=== PATIENT | female | born 1975 | race Caucasian/White ===

== ENCOUNTER 2017-01-02 18:47 | Emergency (ER) | payer MEDICAID, OTHER ==
[~2017-01-02] VITALS: Ht 167.6 cm; Wt 116.0 kg
[~2017-01-02 18:47] MED LIST: ACYC200C66 PO; ATOR40TA16 PO; CELE200C PO; CLON1TAB PO; CLOT1CRE8 TOPICAL; CULT10CA4 PO; CYCL1TAB29 PO; FLUC100T2 PO; LANTUS2P SQ; MACR100C2 PO; MONT10TA2 PO; NOVOINJ3 SQ; NYST1000 SWISH-SWAL; PANT40TA3 PO; SYMB80AE INH; TRAZ50TA12 PO; ZYRT10CA PO
[2017-01-02 18:55] VITALS: BP 175/106; PULSE 111; RESP 16; TEMP 98.3; O2SAT 99
[2017-01-02 19:42] VITALS: BP 131/80; PULSE 104; RESP 18; O2SAT 97
[2017-01-02] MEDS ORDERED: KETOROLAC TROMETHAMINE 30 MG/ML (IVP) VIAL IV PUSH ONE (19:45)
--- NOTE | 2017-01-02 19:53 | PD ---
HPI Chief Complaint: Headache Time Seen by Provider: 19:38 Travel History International Travel<30 days: No Contact w/Intl Traveler<30days: No Traveled to known affect area: No History of Present Illness HPI 41 year-old female presents to the emergency department for complaint of one day of right-sided headache right facial pain and right-sided nosebleed. Patient notes that she was told physical therapy her blood pressure was elevated and she denies history of hypertension. Patient is also noted since onset of symptoms or blood sugar has been elevated. Patient is a type II diabetic. Patient states her blood sugars have been well-controlled recently her hemoglobin A1c decreased from 8-7 and she's lost 16 pounds. Patient denies any fever or chills. Patient thinks that her pain has caused her blood sugar to elevate. Patient rates her pain 7/10 in intensity. Patient took acetaminophen/Tylenol without relief. Patient states previous history of leading peptic ulcer 10 years ago and was told not to take oral ibuprofen. Patient states in the past and she's had a bad headache she has come to the emergency room and has had an injection of Toradol with good symptom relief. Patient denies any dental pain. Has not noted any gingival swelling. Denies any sore throat. Patient was recently seen by her primary for an earache and was told that she had some fluid behind her ear. Patient is also referred tenderness and throat specialist but has not yet seen a specialist regarding intermittent episodes of tongue pain and swelling. Patient denies any tongue pain or swelling at this time. Patient denies any ear pain at this time. Patient's had no neck pain. Patient denies any injury or fall. Patient's had no cough congestion shortness breath wheezing and no hoarseness or stridor. Patient denies any other symptoms such as urinary frequency urgency dysuria hematuria or flank pain. No nausea no vomiting. No abdominal pain. Patient denies chronic headaches but states has been seen in the emergency department before and received Toradol. Patient has family history of migraines. Headache is not described as sudden onset thunderclap or worst ever. PFSH Past Medical History Narrative Medical Arthritis asthma dyslipidemia diabetes GERD prior PUD carpal tunnel syndrome status post release nasal polypectomy D&C cholecystectomy; no tobacco use; nursing notes reviewed Hx Anticoagulant Therapy: No Arthritis: Yes Asthma: Yes Anxiety: Yes Cancer: No Cardiovascular Problems: No High Cholesterol: Yes Diabetes: Yes Patient Takes Glucophage: No Diminished Hearing: No Endocrine: Yes Gastrointestinal Disorders: Yes (ACID REFLUX - HX STOMACH ULCER) GERD: Yes Genitourinary: No Hepatitis: No Hiatal Hernia: No Hypertension: No Immune Disorder: No Musculoskeletal: Yes (DJD/CHRONIC BACK PAIN) Neurologic: No Psychiatric: No Reproductive: No Respiratory: Yes Immunizations Current: Yes Thyroid Disease: No Ulcer: Yes Tetanus Vaccination: Unknown Influenza Vaccination: No ?: Not Menopausal: Yes Ovarian Cysts: Yes Dilation and Curettage (D&C): Yes Past Surgical History Abdominal Surgery: Yes (LAPROSCOPIC FOR ENDOMETRIOSIS; LAP FOR ADHESION 2013) AICD: No Body Medical Devices: NONE Cardiac Surgery: No Section: Yes (X2) Cholecystectomy: Yes Gynecologic Surgery: Yes (C- SECTION X 2 2002, 2006 ) Joint Replacement: No Neurologic Surgery: Yes (NASAL SURGERY ,HEMATOMA TO SKULL R/T OLD INJURY AND WAS DRAINED) Oral Surgery: Yes (T & A; NASAL POLYPS ) Pacemaker: No Thoracic Surgery: No Tonsillectomy: Yes Other Surgery: Yes (ANAL FISTULA - DUODONAL ULCER SURGERY - NASLA POLYPS REMOVED.) Social History Alcohol Use: No Tobacco Use: No Substance Use: No Allergies-Medications (Allergen,Severity, Reaction): Coded Allergies: Accolate (Verified Allergy, Severe, HIVES, 01/02/17) Adhesives (Verified Allergy, Severe, HIVES, 01/02/17) PT STATES "ADHESIVE RIPS SKIN" - OK TO USE PAPER TAPE Aspirin (Verified Allergy, Severe, HIVES, 01/02/17) Clindamycin (Verified Allergy, Severe, hives, 01/02/17) Darvocet-N 100 (Verified Allergy, Severe, HIVES, 01/02/17) Flagyl (Verified Allergy, Severe, HIVES, 01/02/17) Hctz (Verified Allergy, Severe, Hives, 01/02/17) Metformin (Verified Allergy, Severe, SYNCOPE, 01/02/17) Morphine (Verified Allergy, Severe, Hives, 01/02/17) Penicillin (Verified Allergy, Severe, HIVES, 01/02/17) Reported Meds & Prescriptions Reported Meds & Active Scripts Active Clotrimazole AF Topical (Clotrimazole) 1% Cream 1 Applic TOPICAL BID Nystatin Liq 100,000 unit/ml Susp 5 Ml SWISH-SWAL QID Reported Lantus Inj (Insulin Glargine) 1,000 Unit/10 Ml Vial 60 Units SQ BID Novolog Flexpen Inj (Insulin Aspart) 300 Unit/3 Ml Pen 30 Units SQ TID Acyclovir 200 Mg Cap 200 Mg PO TID Macrobid (Nitrofurantoin Monoh/Nitrofur Macro) 100 Mg Cap 100 Mg PO BID Fluconazole 100 Mg Tab 100 Mg PO DAILY Singulair (Montelukast Sodium) 10 Mg Tab 10 Mg PO HS Atorvastatin (Atorvastatin Calcium) 40 Mg Tab 40 Mg PO HS Symbicort Inh (Budesonide/Formoterol Fumarate) 80-4.5 Mcg/Act Aero 2 Puff INH Q12HR Celebrex (Celecoxib) 200 Mg Cap 200 Mg PO DAILY Clonazepam 1 Mg Tab 1 Mg PO DAILY Culturelle (Lactobacillus Rhamnosus (GG)) 10 B Cell Cap 1 Cap PO DAILY Flexeril (Cyclobenzaprine HCl) 10 Mg Tab 10 Mg PO TID Pantoprazole (Pantoprazole Sodium) 40 Mg Tab 40 Mg PO DAILY Trazodone (Trazodone HCl) 50 Mg Tab 50 Mg PO HS Zyrtec Allergy (Cetirizine HCl) 10 Mg Cap 10 Mg PO DAILY Review of Systems Except as stated in HPI: all other systems reviewed are Neg General / Constitutional: No: Fever, Chills Eyes: No: Visual changes HENT: Positive: Headaches, Nosebleed, No: Vertigo, Lightheadedness, Sore Throat, Neck Stiffness, Neck Pain, Earache Cardiovascular: No: Chest Pain or Discomfort Respiratory: No: Shortness of Breath Gastrointestinal: No: Nausea, Vomiting Genitourinary: No: Dysuria Musculoskeletal: No: Myalgias, Arthralgias Skin: No Rash Neurologic: Positive: Headache, No: Weakness, Dizziness Psychiatric: No: Anxiety Endocrine: No: Heat Intolerance Hematologic/Lymphatic: No: Easy Bruising Physical Exam Narrative GENERAL: Well-developed well-nourished female in no acute distress no respiratory distress; GCS 15; no stridor or hoarseness. SKIN: Warm and dry. HEAD: Atraumatic. Normocephalic. EYES: Pupils equal and round. No scleral icterus. No injection or drainage. ENT: No active nasal bleeding or discharge old dried blood and right anterior naris. Mucous membranes pink and moist. Airway is patent no posterior pharyngeal blood edema erythema or exudative change dentition intact as well as areas of prior extraction no gingival edema or fluctuance; right frontal and right maxillary sinuses tender to percussion increases pain of presentation. No soft tissue edema erythema or induration noted to the facial soft tissue. Tympanic membranes bilaterally no redness no dullness or loss of landmarks no perforation. NECK: Trachea midline. No JVD. No lymphadenopathy. Supple. No nuchal rigidity or meningismus. CARDIOVASCULAR: Regular rate and rhythm. RESPIRATORY: No accessory muscle use. Clear to auscultation. Breath sounds equal bilaterally. GASTROINTESTINAL: Abdomen soft, non-tender, nondistended. Hepatic and splenic margins not palpable. MUSCULOSKELETAL: Extremities without clubbing, cyanosis, or edema. No obvious deformities. NEUROLOGICAL: Awake and alert. No obvious cranial nerve deficits. Motor grossly within normal limits. Five out of 5 muscle strength in the arms and legs. Normal speech. PSYCHIATRIC: Appropriate mood and affect; insight and judgment normal. Data Data Last Documented VS Vital Signs Date Time Temp Pulse Resp B/P Pulse Ox O2 Delivery O2 Flow Rate FiO2 01/02/17 20:34 15 01/02/17 20:01 97 Room Air 01/02/17 19:42 104 131/80 01/02/17 18:55 98.3 Orders Complete Blood Count With Diff (01/02/17 19:38) Magnesium (Mg) (01/02/17 19:38) Urinalysis - C+S If Indicated (01/02/17 19:38) Ecg Monitoring (01/02/17 19:38) Iv Access Insert/Monitor (01/02/17 19:38) Oximetry (01/02/17 19:38) Basic Metabolic Panel (Bmp) (01/02/17 19:38) Ed Urine Pregnancytest Poc (01/02/17 19:38) Ketorolac Inj (Toradol Inj) (01/02/17 19:45) Labs Laboratory Tests Test 01/02/17 19:50 White Blood Count 8.7 TH/MM3 Red Blood Count 4.91 MIL/MM3 Hemoglobin 13.1 GM/DL Hematocrit 39.2 % Mean Corpuscular Volume 79.9 FL Mean Corpuscular Hemoglobin 26.8 PG Mean Corpuscular Hemoglobin 33.5 % Concent Red Cell Distribution Width 14.0 % Platelet Count 286 TH/MM3 Mean Platelet Volume 7.6 FL Neutrophils (%) (Auto) 74.5 % Lymphocytes (%) (Auto) 16.1 % Monocytes (%) (Auto) 6.1 % Eosinophils (%) (Auto) 2.5 % Basophils (%) (Auto) 0.8 % Neutrophils # (Auto) 6.5 TH/MM3 Lymphocytes # (Auto) 1.4 TH/MM3 Monocytes # (Auto) 0.5 TH/MM3 Eosinophils # (Auto) 0.2 TH/MM3 Basophils # (Auto) 0.1 TH/MM3 CBC Comment DIFF FINAL Differential Comment Urine Color STRAW Urine Turbidity CLEAR Urine pH 6.5 Urine Specific [place] 1.005 Urine Protein NEG mg/dL Urine Glucose (UA) NEG mg/dL Urine Ketones NEG mg/dL Urine Occult Blood NEG Urine Nitrite NEG Urine Bilirubin NEG Urine Leukocyte Esterase NEG Urine Squamous Epithelial 0-5 /hpf Cells Microscopic Urinalysis Comment CULT NOT INDICATED Sodium Level 140 MEQ/L Potassium Level 3.5 MEQ/L Chloride Level 102 MEQ/L Carbon Dioxide Level 28.6 MEQ/L Anion Gap 9 MEQ/L Blood Urea Nitrogen 13 MG/DL Creatinine 0.87 MG/DL Estimat Glomerular Filtration 71 ML/MIN Rate Random Glucose 156 MG/DL Calcium Level 9.1 MG/DL Magnesium Level 2.1 MG/DL [facility] Medical Decision Making Medical Screen Exam Complete: Yes Emergency Medical Condition: Yes Medical Record Reviewed: Yes Differential Diagnosis Sinusitis, epistaxis, uncontrolled hypertension, uncontrolled diabetes, cephalgia Narrative Course IV access obtained specimens collected and sent for resulting patient administered Toradol as reports this has been helpful with her headaches in the past. Diagnosis Primary Impression: Acute sinusitis Qualified Code: J01.00 - Acute maxillary sinusitis, recurrence not specified Referrals: Primary Care Physician call for appointment Patient Instructions: General Instructions Med/Other Pt SpecificInfo: Prescription(s) given Scripts Hydrocodone-Acetaminophen (Lortab)5-325 Mg Tab1 Tab PO Q6H PRN (PAIN) #7 TAB Ref 0 Prov:Serene Madrigal MD 01/02/17 Sulfamethoxazole-Trimethoprim (Bactrim DS)800-160 Mg Tab1 Tab PO BID #20 TAB Ref 0 Prov:Serene Madrigal MD 01/02/17 Disposition: 01 DISCHARGE HOME Condition: Stable Serene Madrigal MD January 02, 2017 19:53
[2017-01-02 20:01] VITALS: O2SAT 97
[2017-01-02 20:05] LABS: AUTOMATED NEUTROPHIL # 6.5 TH/MM3 (1.8-7.7); BASOPHIL # 0.1 TH/MM3 (0-0.2); BASOPHIL % 0.8 % (0.0-2.0); EOSINOPHIL # 0.2 TH/MM3 (0-0.4); EOSINOPHIL % 2.5 % (0.0-4.0); HEMATOCRIT 39.2 % (35.0-46.0); HEMO FLAGS DIFF FINAL; LYMPH % 16.1 % (9.0-44.0); LYMPHOCYTE # 1.4 TH/MM3 (1.0-4.8); MEAN CELL VOLUME 79.9 FL (80.0-100.0); MEAN CORPUSCULAR HEMOGLOBIN 26.8 PG (27.0-34.0); MEAN CORPUSCULAR HGB CONC 33.5 % (32.0-36.0); MONO % 6.1 % (0.0-8.0); NEUT % 74.5 % (16.0-70.0); PLATELET COUNT 286 TH/MM3 (150-450); RED BLOOD COUNT 4.91 MIL/MM3 (4.00-5.30); WHITE BLOOD COUNT 8.7 TH/MM3 (4.0-11.0)
[2017-01-02 20:09] LABS: BLOOD, URINE NEG (NEG); GLUCOSE,URINE NEG (NEG); KETONE, URINE NEG (NEG); NITRITE,URINE NEG (NEG); PH, URINE 6.5 (5.0-8.5)
[2017-01-02 20:15] LABS: COMMENT (UR) CULT NOT INDICATED; CULTURE IF INDICATED CULT NOT INDICATED; POTASSIUM 3.5 MEQ/L (3.5-5.1); SQUAMOUS EPITHELIAL CELL URINE 0-5 /hpf (0-5); URINE COLOR STRAW (YELLW/STRAW)
[2017-01-02 20:18] LABS: BICARBONATE 28.6 MEQ/L (21.0-32.0); MAGNESIUM 2.1 MG/DL (1.5-2.5)
[2017-01-02 20:34] VITALS: RESP 15
[2017-01-02] MEDS ORDERED: BACT800T5 PO (21:37)
[2017-01-02] MEDS ORDERED: HYDR-3533 PO (21:37)
[2017-01-02] MEDS ORDERED: LEVOFLOXACIN 500 MG TAB PO ONE (21:45)
[2017-01-02 21:52] VITALS: BP 143/88; TEMP 98.5
== END 2017-01-02 22:07 | disposition home or self-care (01) ==
LOC: PHED 18:47
DX: J01.00 Acute maxillary sinusitis, unspecified (principal); Z79.899 Other long term (current) drug therapy
CPT/HCPCS: 80048; 81001; 83735; 84703; 85025; 96374; 99284; J1885

== ENCOUNTER → 2017-03-10 | Day surgery (SDC) | payer MEDICAID ==
[~2017-03-10] VITALS: Ht 167.6 cm; Wt 118.0 kg
[~2017-03-10] MED LIST changes: +ACETAMINOPHEN/HYDROcodone 325 MG/5 MG TAB ONE; +ACETAMINOPHEN/HYDROcodone 325 MG/7.5 MG TAB ONE; +BLOOD GLUCOSE T1 TES; +BUPIVACAINE/EPINEPHRINE 0.25% PF 30 ML VIAL ONE; +CETI-1 PO; +CHLORHEXIDINE GLUCONATE 2 % 1 PACK (2 CLOTHS) TOPICAL PRN; +HYDR-3533 PO; +HYDROmorphone HCL PF 1 MG/ML VIAL ONE; +INSULIN HUMAN REGULAR 1,000 UNITS/10 ML VIAL SQ PRN; +KETOROLAC TROMETHAMINE 30 MG/ML (IVP) VIAL ONE; +LACTATED RINGER'S 1000 ML IV PRN; +METOPROLOL TARTRATE 25 MG TAB PO PRN; +MIDAZOLAM HCL 2 MG/2 ML VIAL ONE; +ONDANSETRON HCL 4 MG/2 ML VIAL IV PUSH ONE; +POVIDONE IODINE 5% (ANTISEPSIS KIT) 4 APPLICATIONS EACH NARE PRN; +PROMETHAZINE INJ 25 MG/ML VIAL ONE; +PROPOFOL 200 MG/20 ML AMP IV ONE; +SODIUM CHLOR 0.9% 250 ML INJ 250 ML ONE; +SODIUM CHLORID 0.9% 500 ML IV PRN; +TRIAMCINOLONE ACETONIDE 40 MG/ML VIAL ONE; +VANCOMYCIN HCL 1000 MG VIAL ONE; +diphenhydrAMINE HCL 50 MG/ML VIAL ONE
[2017-03-10 07:48] VITALS: BP 122/94; PULSE 103; RESP 18; TEMP 97.8; O2SAT 98
[2017-03-10 12:55] VITALS: BP 135/71; PULSE 88; RESP 16; TEMP 98.2; O2SAT 93
--- NOTE | 2017-03-10 14:24 | MP ---
cc: KHARI HENNESSY M.D. DATE OF SURGERY 03/10/[address] Mayank Hennessy. PREOPERATIVE DIAGNOSIS Tear lateral meniscus right knee joint. POSTOPERATIVE DIAGNOSIS Tear lateral meniscus right knee joint. PROCEDURE Subtotal lateral meniscectomy. PROCEDURE IN DETAIL The patient was placed on the operating table in the supine position. Adequate general anesthesia was administered by the anesthesiologist. The patient's right knee was then prepped and draped in the usual sterile fashion. Esmarch bandage was used to exsanguinate the right lower extremity and the pneumatic tourniquet was inflated to the level of the thigh to a pressure of 300. Time-out was called and the patient's name, location and procedure were fully verified. The right knee joint arthroscopic procedure consisted of two portals, one laterally and one medially. The joint was distended with lactated Ringer's solution and a systematic examination of the knee joint did reveal complex tearing of the anterior horn to the middle one third of the lateral meniscus. The medial meniscus and medial compartment was pristine and intact. The anterior and posterior cruciate ligaments were also found to be intact and the patellofemoral joint was unremarkable. A meniscal resector was placed into the lateral compartment through the medial portal and a subtotal lateral meniscectomy was performed down to healthy appearing tissue. Minimal chondroplasty was required with the same instrument. The joint was then thoroughly irrigated and aspirated of all fluid. All instruments were then removed and the two stab wounds closed with 3-0 nylon. An intra-articular injection of 20 cc of 0.25% percent Marcaine with epinephrine along with 1 cc of Kenalog was instilled in the knee joint. The Xeroform gauze was applied over the wound and a bulky dressing applied over this. The tourniquet was deflated after 14 minutes. Sponge count, needle count and instrument counts were reportedly correct x2. The estimated blood loss was nil. The patient was transferred to recovery room in satisfactory condition. Khari Hennessy MD CHACHO/WENDIE /10:20 AM /2:20 PM
== END | disposition home or self-care (01) ==
LOC: PHSDC 07:06
PROVIDERS: ATTEND Orthopaedic Surgery
DX: S83.281A Other tear of lateral meniscus, current injury, right knee, initial encounter (principal); E11.9 Type 2 diabetes mellitus without complications; K25.9 Gastric ulcer, unspecified as acute or chronic, without hemorrhage or perforation; K21.9 Gastro-esophageal reflux disease without esophagitis; J45.909 Unspecified asthma, uncomplicated
CPT/HCPCS: 01400; 29881; 82948; E0113; J1170; J1200; J1885; J2250; J2405; J2550; J3010; J3301; J3370; J7050; J7120

== ENCOUNTER 2017-05-19 15:09 | Emergency (ER) | payer MEDICAID ==
[~2017-05-19] VITALS: Ht 167.6 cm; Wt 112.2 kg
[~2017-05-19 15:09] MED LIST changes: -ACETAMINOPHEN/HYDROcodone 325 MG/5 MG TAB ONE; -ACETAMINOPHEN/HYDROcodone 325 MG/7.5 MG TAB ONE; -BUPIVACAINE/EPINEPHRINE 0.25% PF 30 ML VIAL ONE; -CHLORHEXIDINE GLUCONATE 2 % 1 PACK (2 CLOTHS) TOPICAL PRN; -CULT10CA4 PO; -HYDROmorphone HCL PF 1 MG/ML VIAL ONE; -INSULIN HUMAN REGULAR 1,000 UNITS/10 ML VIAL SQ PRN; -KETOROLAC TROMETHAMINE 30 MG/ML (IVP) VIAL ONE; -LACTATED RINGER'S 1000 ML IV PRN; -METOPROLOL TARTRATE 25 MG TAB PO PRN; -MIDAZOLAM HCL 2 MG/2 ML VIAL ONE; -NOVOINJ3 SQ; -NYST1000 SWISH-SWAL; -ONDANSETRON HCL 4 MG/2 ML VIAL IV PUSH ONE; -POVIDONE IODINE 5% (ANTISEPSIS KIT) 4 APPLICATIONS EACH NARE PRN; -PROMETHAZINE INJ 25 MG/ML VIAL ONE; -PROPOFOL 200 MG/20 ML AMP IV ONE; -SODIUM CHLOR 0.9% 250 ML INJ 250 ML ONE; -SODIUM CHLORID 0.9% 500 ML IV PRN; -TRIAMCINOLONE ACETONIDE 40 MG/ML VIAL ONE; -VANCOMYCIN HCL 1000 MG VIAL ONE; -ZYRT10CA PO; -diphenhydrAMINE HCL 50 MG/ML VIAL ONE
[2017-05-19 15:15] VITALS: BP 177/89; PULSE 126; RESP 16; TEMP 99.1; O2SAT 98
[2017-05-19] MEDS ORDERED: methylPREDNISolone SOD SUCC 125 MG/2 ML VIAL IM ONE (15:30)
--- NOTE | 2017-05-19 15:34 | PD ---
HPI Chief Complaint: Respiratory Symptoms Time Seen by Provider: 15:19 Travel History International Travel<30 days: No Contact w/Intl Traveler<30days: No Traveled to known affect area: No History of Present Illness HPI The patient was seen and examined in the presence of the nurse. This patient complains of shortness of breath and wheezing. She has history of asthma and felt like she was having an asthma attack. She does have an inhaler and nebulizer at home. She is not a smoker. Duration one day. Symptoms were moderately severe. No exacerbating factors. Symptoms were alleviated by nebulizer earlier today. She is an insulin-dependent diabetic with wildly fluctuating sugars. PFSH Past Medical History Hx Anticoagulant Therapy: No Arthritis: Yes Asthma: Yes Anxiety: Yes Cancer: No Cardiovascular Problems: No High Cholesterol: Yes Diabetes: Yes (TYPE 2 ) Diminished Hearing: No Endocrine: Yes Gastrointestinal Disorders: Yes (ACID REFLUX - HX STOMACH ULCER) GERD: Yes Genitourinary: No Hepatitis: No Hiatal Hernia: No Hypertension: No Immune Disorder: No Musculoskeletal: Yes (DJD/CHRONIC BACK PAIN, ARTHRITIS) Neurologic: No Psychiatric: No Reproductive: No Respiratory: Yes Immunizations Current: Yes Thyroid Disease: No Ulcer: Yes Menopausal: Yes Ovarian Cysts: Yes Dilation and Curettage (D&C): Yes Past Surgical History Abdominal Surgery: Yes (LAPROSCOPIC FOR ENDOMETRIOSIS; LAP FOR ADHESION 2013) AICD: No Body Medical Devices: NONE Cardiac Surgery: No Section: Yes (X2) Cholecystectomy: Yes Gynecologic Surgery: Yes (C- SECTION X 2 2002, 2006 ) Joint Replacement: No Neurologic Surgery: Yes (NASAL SURGERY ,HEMATOMA TO SKULL R/T OLD INJURY AND WAS DRAINED) Oral Surgery: Yes (T & A; NASAL POLYPS ) Pacemaker: No Thoracic Surgery: No Tonsillectomy: Yes Other Surgery: Yes (ANAL FISTULA - DUODONAL ULCER SURGERY - NASLA POLYPS REMOVED.) Social History Alcohol Use: No Tobacco Use: No Substance Use: No Allergies-Medications (Allergen,Severity, Reaction): Coded Allergies: acetaminophen (Verified Allergy, Severe, HIVES, 05/19/17) adhesive (Verified Allergy, Severe, HIVES, 05/19/17) PT STATES "ADHESIVE RIPS SKIN" - OK TO USE PAPER TAPE aspirin (Verified Allergy, Severe, HIVES, 05/19/17) clindamycin (Verified Allergy, Severe, hives, 05/19/17) hydrochlorothiazide (Verified Allergy, Severe, Hives, 05/19/17) metformin (Verified Allergy, Severe, SYNCOPE, 05/19/17) metronidazole (Verified Allergy, Severe, HIVES, 05/19/17) morphine (Verified Allergy, Severe, Hives, 05/19/17) penicillin G (Verified Allergy, Severe, HIVES, 05/19/17) propoxyphene (Verified Allergy, Severe, HIVES, 05/19/17) zafirlukast (Verified Allergy, Severe, HIVES, 05/19/17) Reported Meds & Prescriptions Reported Meds & Active Scripts Active Prednisone 20 Mg Tab 40 Mg PO DIRECTED 5 Days Blood Glucose Test Strips Strips Strip 1 Box .ROUTE TID Blood Glucose Test Strips Strips Strip 1 Box .ROUTE TID Reported Novolog Flexpen Inj (Insulin Aspart) 300 Unit/3 Ml Pen 1 Units SQ DIRECTED Albuterol Neb (Albuterol Sulfate) 0.63 Mg/3 Ml Neb 0.63 Mg NEB Q6HR NEB PRN Zyrtec (Cetirizine HCl) 10 Mg Tablet PO DAILY Lantus Inj (Insulin Glargine) 1,000 Unit/10 Ml Vial 60 Units SQ BID Singulair (Montelukast Sodium) 10 Mg Tab 10 Mg PO HS Atorvastatin (Atorvastatin Calcium) 40 Mg Tab 40 Mg PO HS Symbicort Inh (Budesonide/Formoterol Fumarate) 80-4.5 Mcg/Act Aero 2 Puff INH Q12HR Celebrex (Celecoxib) 200 Mg Cap 200 Mg PO DAILY Flexeril (Cyclobenzaprine HCl) 10 Mg Tab 10 Mg PO TID Pantoprazole (Pantoprazole Sodium) 40 Mg Tab 40 Mg PO DAILY Trazodone (Trazodone HCl) 50 Mg Tab 50 Mg PO HS Review of Systems General / Constitutional: No: Fever Eyes: No: Visual changes HENT: Positive: Congestion, No: Headaches Cardiovascular: Positive: Tachycardia, No: Chest Pain or Discomfort Respiratory: Positive: Shortness of Breath, Wheezing Gastrointestinal: No: Abdominal Pain Genitourinary: No: Dysuria Musculoskeletal: No: Pain Skin: No Rash Neurologic: No: Weakness Psychiatric: No: Depression Endocrine: No: Polydipsia Hematologic/Lymphatic: No: Easy Bruising Physical Exam Narrative GENERAL: Well-nourished, well-developed patient in no apparent distress. SKIN: Focused skin assessment reveals no rash and nodules. Skin is Warm and dry. HEAD: Atraumatic. Normocephalic. EYES: Pupils equal and round. No scleral icterus. No injection or drainage. ENT: No nasal bleeding or discharge. Mucous membranes pink and moist. NECK: Trachea midline. No JVD. CARDIOVASCULAR: Regular rate and rhythm. No murmur appreciated. Heart rate 112 and regular RESPIRATORY: Slight accessory muscle use. Diffuse expiratory wheezing without crackles. Breath sounds equal bilaterally. GASTROINTESTINAL: Abdomen soft, non-tender, nondistended. Hepatic and splenic margins not palpable. MUSCULOSKELETAL: No obvious deformities. No clubbing. No cyanosis. No edema. NEUROLOGICAL: Awake and alert. No obvious cranial nerve deficits. Motor grossly within normal limits. Normal speech. PSYCHIATRIC: Appropriate mood and affect; insight and judgment normal. Data Data Last Documented VS Vital Signs Date Time Temp Pulse Resp B/P (MAP) Pulse Ox O2 Delivery O2 Flow Rate FiO2 05/19/17 15:44 106 100 Room Air 05/19/17 15:35 05/19/17 15:15 99.1 16 Orders Orders Ecg Monitoring (05/19/17 15:29) Oximetry (05/19/17 15:29) Methylprednisolone So Succ Inj (Solumedr (05/19/17 15:30) Albuterol-Ipratropium Neb (Duoneb Neb) (05/19/17 15:30) Blood Glucose (05/19/17 15:29) Ketorolac Inj (Toradol Inj) (05/19/17 16:30) MDM Medical Decision Making Medical Screen Exam Complete: Yes Emergency Medical Condition: Yes Medical Record Reviewed: Yes Differential Diagnosis Asthma exacerbation, COPD, bronchitis, pneumonia Narrative Course I have reviewed the patient's electronic medical record. Reviewed her visit from 2 days ago to the diabetes manager I gave her series of 3 nebulizer treatments and a injection of Solu-Medrol Extended cardiac monitoring reveals sinus tachycardia without ectopy Accu-Chek is 295 On recheck she is clinically much better. No wheezing. I've days of prednisone written. Warned her to closely monitor her sugars as steroids can predispose to hypoglycemia She asked for Toradol by name Diagnosis Primary Impression: Acute asthma exacerbation Qualified Codes: J45.901 - Unspecified asthma with (acute) exacerbation Additional Impression: Acute hyperglycemia Additional Instructions: The patient was advised to follow up with their physician and return if they worsen. Med/Other Pt SpecificInfo: Prescription(s) given Scripts Prednisone (Prednisone) 20 Mg Tab 40 MG PO DIRECTED for 5 Days, TAB 0 Refills Prov: Isai Gregory MD 05/19/17 Disposition: 01 DISCHARGE HOME Condition: Stable Isai Gregory MD May 19, 2017 15:34
[2017-05-19 15:35] VITALS: O2SAT 100
[2017-05-19] MEDS: RESP: ALBUTEROL 2.5 MG/IPRATROPIUM 0.5 MG NEB (SCH) INH (15:37)
[2017-05-19] MEDS ORDERED: ALBU0.63 NEB (15:39)
[2017-05-19] MEDS ORDERED: NOVOINJ3 SQ (15:39)
[2017-05-19] MEDS ORDERED: KETOROLAC TROMETHAMINE 60 MG/2 ML (IM) VIAL IM ONE (16:30)
[2017-05-19] MEDS ORDERED: PRED20 PO (16:32)
[2017-05-19 17:01] VITALS: BP 117/72; PULSE 113; RESP 16; O2SAT 98
== END 2017-05-19 17:15 | disposition home or self-care (01) ==
LOC: PHED 15:09
DX: J45.901 Unspecified asthma with (acute) exacerbation (principal); E11.65 Type 2 diabetes mellitus with hyperglycemia; E78.00 Pure hypercholesterolemia, unspecified; Z88.0 Allergy status to penicillin; Z87.19 Personal history of other diseases of the digestive system; Z79.4 Long term (current) use of insulin
CPT/HCPCS: 94640; 94664; 96372; 99284; J1885; J2930